=== PATIENT | male | born 1985 | race Two or more races ===

== ENCOUNTER 2018-07-13 18:59 | Emergency (ER) | payer OTHER ==
[~2018-07-13] VITALS: Ht 172.7 cm; Wt 81.6 kg
[2018-07-13 19:07] VITALS: BP 135/81
--- NOTE | 2018-07-13 20:18 | Emergency Room Report ---
History of Present Illness General Chief Complaint: Medical Clearance Source: Patient Present Illness HPI 33-year-old male presents to the emergency department complaining of palpitations status post smoking one 10 g of meth maximally one hour ago. Patient is also here for medical clearance for incarceration. Patient denies chest pain, headache, dizziness, nausea, vomiting or shortness of breath. Patient denies IV drug use. He states that he does not regularly use meth. No significant past medical history per patient. Denies , LOC, AMS, dizziness, Changes in Vision, Sensation, paresthesias, or a sudden severe headache. Allergies: Coded Allergies: No Known Allergies (Unverified , 07/13/18) Patient History Past Medical History: see triage record Past Surgical History: none Pertinent Family History: none Social History: Reports: drug use - meth Immunizations: UTD Reviewed Nursing Documentation: PMH: Agreed; PSxH: Agreed Nursing Documentation-PMH Past Medical History: No Stated History Review of Systems All Other Systems: negative except mentioned in HPI Physical Exam Vital Signs Date Time Temp Pulse Resp B/P (MAP) Pulse Ox O2 Delivery O2 Flow Rate FiO2 07/13/18 18:58 98.8 119 18 135/81 98 Room Air 98.8 Sp02 EP Interpretation: reviewed, normal General Appearance: no apparent distress, alert, GCS 15, non-toxic Head: normocephalic, atraumatic Eyes: bilateral eye normal inspection, bilateral eye PERRL ENT: hearing grossly normal, normal voice Neck: full range of motion Respiratory: chest non-tender, lungs clear, normal breath sounds, speaking full sentences Cardiovascular #1: regular rate, rhythm, no edema, normal capillary refill, tachycardia Gastrointestinal: normal bowel sounds, non tender, soft Musculoskeletal: back normal, gait/station normal, normal range of motion, non- tender Neurologic: alert, oriented x3, responsive, motor strength/tone normal, sensory intact, normal gait, speech normal, grossly normal Psychiatric: judgement/insight normal Skin: normal color, no rash, warm/dry, well hydrated, other - no open wounds or abscesses noted Lymphatic: no adenopathy Medical Decision Making PA Attestation Dr. Ruelas is my supervising Physician whom patient management has been discussed with. Diagnostic Impression: Primary Impression: Medical clearance for incarceration Additional Impression: Tachycardia ER Course 33-year-old male presents to the emergency department complaining of palpitations status post smoking one 10 g of meth maximally one hour ago. Patient is also here for medical clearance for incarceration. Patient denies chest pain, headache, dizziness, nausea, vomiting or shortness of breath. Patient denies IV drug use. He states that he does not regularly use meth. No significant past medical history per patient. Denies , LOC, AMS, dizziness, Changes in Vision, Sensation, paresthesias, or a sudden severe headache. Ddx considered but are not limited to Head Trauma, NH, ACS, SI/HI, URI, SAH, Fractures, Dislocations, Tazer barbs, Abrasions, ROULA, STEMI, Drug SE's Vital signs: are WNL, pt. is afebrile H&PE are most consistent with: normal limited physical examination. ORDERS: -EKG: Sinus tachycardia rate of 111. ED INTERVENTIONS: None required at this time. DISCHARGE: At this time pt. is stable for d/c to law enforcement. Will provide printed patient care instructions, and any necessary prescriptions. Care plan and follow up instructions have been discussed with the patient prior to discharge. EKG Diagnostic Results EP Interpretation: Dr. Ruelas Rate: tachycardiac - 111 Rhythm: NSR ST Segments: no acute changes ASA given to the pt in ED: No PA Scribe Text This Interpretation was scribed by JOSÉ ANTONIO Jennings. Last Vital Signs Date Time Temp Pulse Resp B/P (MAP) Pulse Ox O2 Delivery O2 Flow Rate FiO2 07/13/18 19:07 98.8 119 18 135/81 98 Room Air 98.8 Disposition: D/C TO LAW ENFORCEMENT IN [place] Condition: Stable Patient Instructions: Medical Screening Exam Additional Instructions: Take any previously prescribed medications as directed. Follow up with a Primary Care Provider in 3-5 days, even if your symptoms have resolved. --Please review list of primary care clinics, if you do not already have a primary care provider Return sooner to ED if new symptoms occur, or current symptoms become worse. - Please note that this Emergency Department Report was dictated using [employer] machine floor person technology software, occasionally this can lead to erroneous entry secondary to interpretation by the dictation equipment. Aliyah Jennings Jul 13, 2018 20:18
== END 2018-07-13 20:43 | disposition home or self-care (01) ==
LOC: EDBD 18:59 → EMR 19:40
DX: R00.0 Tachycardia, unspecified (principal); F15.90 Other stimulant use, unspecified, uncomplicated
CPT/HCPCS: 93005; 99284